=== PATIENT | male | born 1965 | race Caucasian/White ===

== ENCOUNTER 2019-03-08 14:01 | Inpatient (IN) | payer OTHER ==
[2019-03-08 15:42] VITALS: BMI 23.6
--- NOTE | 2019-03-08 17:57 | HP ---
COWS - Scale Resting Pulse: 0= [place] 80 or Below Sweatin= Chills/Flushing Restless Observation: 0= Sits Still Pupil Size: 0= Normal to Room Light Bone or Joint Aches: 1= Mild Discomfort Runny Nose/ Eye Tearin= Runny Nose/Eyes GI Upset > 30mins: 2= Nausea/Diarrhea Tremor Observation: 2= Slight Tremor Visible Yawning Observation: 1= 1-2x During Session Anxiety or Irritability: 1=Feels Anxious/Irritable Goose Flesh Skin: 3=Piloerection COWS Score: 13 CIWA Score Nausea/Vomitin Muscle Tremors: 2 Anxiety: 2 Agitation: 1-Slight > Activity Paroxysmal Sweats: 2 Orientation: 0-Oriented Tacttile Disturbances: 0-None Auditory Disturbances: 0-None Visual Disturbances: 0-None Headache: 3-Moderate CIWA-Ar Total Score: 12 - Admission Criteria [facility] Guidelines: Admission for Medically Managed Detox: Requires at least one of the followin. CIWA greater than 12 2. Seizures within the past 24 hours 3. Delirium tremens within the past 24 hours 4. Hallucinations within the past 24 hours 5. Acute intervention needed for co occurring medical disorder 6. Acute intervention needed for co occurring psychiatric disorder 7. Severe withdrawal that cannot be handled at a lower level of care (continued vomiting, continued diarrhea, abnormal vital signs) requiring intravenous medication and/or fluids 8. Admission ROS [facility] Chief Complaint: want to detox from ETOH and heroin Allergies/Adverse Reactions: Allergies Allergy/AdvReac Type Severity Reaction Status Date / Time No Known Allergies Allergy Verified 03/20/18 18:43 History of Present Illness: Mr. Luis is a 53yo male with hx of heroin use disorder, ETOH use disorder, tobacco use disorder, HIV, hepatitis C (treated 4-5 years ago), bipolar disorder , and schizophrenia who presents for heroin and ETOH detox. He reports multiple detox attempts, the last being about 1 year ago. He began using soon after the last session of detox. He uses 4-5 bags heroin/day and has been using consistently for the last 7 years, initially starting around age 29. Denies overdosing and does not have Narcan kit. He also reports drinking 100oz beer/ day and occasional liquor use. He began drinking at 10. Denies blackouts or seizures. He has been in methadone program before and is interested in beginning one again. Pt currently smokes 1/2 ppd tobacco x 20-30 years. He endorses cold sweats, sneezing, teary eyes, abdominal cramps, diarrhea, anxiety , trembling, nausea, and headaches. He denies vomiting and hallucinations. He reports taking his HIV medications today. Pt has not taking Seroquel in at least one week. PCP Dr. Lee Exam Limitations: No Limitations - Ebola screening Have you traveled outside of the country in the last 21 days: No Have you had contact with anyone from an Ebola affected area: No Do you have a fever: No - Review of Systems Constitutional: Chills, Diaphoresis EENT: reports: Tearing, Nose Congestion Respiratory: reports: No Symptoms reported Cardiac: reports: No Symptoms Reported GI: reports: Diarrhea, Nausea : reports: No Symptoms Reported Musculoskeletal: reports: Joint Pain Integumentary: reports: No Symptoms Reported Neuro: reports: Headache Endocrine: reports: No Symptoms Reported Hematology: reports: No Symptoms Reported Psychiatric: reports: Judgement Intact, Mood/Affect Appropiate, Orientated x3 Patient History - Patient Medical History Hx Anemia: No Hx Asthma: No Hx Chronic Obstructive Pulmonary Disease (COPD): No Hx Cancer: No Hx Cardiac Disorders: No Hx Congestive Heart Failure: No Hx Hypertension: No Hx Hypercholesterolemia: No Hx Pacemaker: No HX Cerebrovascular Accident: No Hx Seizures: No Hx Dementia: No Hx Diabetes: No Hx Gastrointestinal Disorders: No Hx Liver Disease: No Hx Genitourinary Disorders: No Hx Sexually Transmitted Disorders: Yes ([place] HX) Hx Renal Disease (ESRD): No Hx Thyroid Disease: No Hx Human Immunodeficiency Virus (HIV): Yes (SINCE 2004; ON ANTIRETROVIRAL DRUGS. ) Hx Hepatitis C: Yes (TREATED FOR 6 MONTHS) Hx Depression: Yes (NOT CURRENTLY ON MED) Hx Suicide Attempt: No (DENIES ) Hx Bipolar Disorder: No Hx Schizophrenia: No - Patient Surgical History Past Surgical History: Yes Hx Orthopedic Surgery: Yes (L leg fx sx in 1988 DUE TO FALL) Anesthesia Reaction: No - PPD History Date: 03/22/18 Results: 0 MM - Smoking Cessation Smoking history: Current every day smoker Have you smoked in the past 12 months: Yes Aproximately how many cigarettes per day: 10 Cigars Per Day: 0 Hx Chewing Tobacco Use: No Initiated information on smoking cessation: Yes 'Breaking Loose' booklet given: 03/08/19 - Substances abused Heroin Substance route: Inhalation Frequency: Daily Amount used: 4 bags Age of first use: 29 Date of last use: 03/07/19 Alcohol Substance route: Oral Frequency: Daily Amount used: 100 ounzes Age of first use: 10 Date of last use: 03/07/19 Family Disease History - Family Disease History Family Disease History: Heart Disease: Mother (ALCOHOL), Other: Father (ALCOHOL) , Mother Admission Physical Exam [facility] - Vital Signs Vital Signs: Vital Signs - 24 hr 03/08/19 15:31 Temperature 97 F L Pulse Rate 67 Respiratory 18 Rate Blood Pressure 121/80 - Physical General Appearance: Yes: No Apparent Distress, Nourished HEENTM: Yes: Normocephalic, Pharynx Normal Respiratory: Yes: Lungs Clear, Normal Breath Sounds Neck: Yes: Within Normal Limits Cardiology: Yes: Regular Rhythm, Regular Rate Abdominal: Yes: Normal Bowel Sounds, Soft, Tenderness Back: Yes: Within Normal Limits Musculoskeletal: Yes: Within Normal Limits Extremities: Yes: Within Normal Limits 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
--- NOTE | 2019-03-08 18:11 | PN ---
Teaching Attending Note Name of Resident: Una Henley ATTENDING PHYSICIAN STATEMENT I saw and evaluated the patient. I reviewed the resident's note and discussed the case with the resident. I agree with the resident's findings and plan as documented. SUBJECTIVE: 53 yo with HIV treated HCV, bipolar, schizophrenia- not taking meds. heroin- 4-5 bags/day alcohol- 100oz/day cigarettes- 1/2 PPD OBJECTIVE: Vital Signs - 24 hr 03/08/19 15:31 Temperature 97 F L Pulse Rate 67 Respiratory 18 Rate Blood Pressure 121/80 alert and oriented abd soft and tender utox- mop. MTD. BRANDEE-0 ASSESSMENT AND PLAN: AUD/OUD: librium and methadone detox protocols.
[2019-03-08] MEDS ORDERED: ACETAMINOPHEN 325 MG TABLET (FP) PO PRN ×2 (18:20)
[2019-03-08] MEDS ORDERED: cloNIDine HCL 0.1 MG TABLET PO PRN (18:20)
[2019-03-08] MEDS ORDERED: MAGNESIUM HYDROX 2400MG/30ML ORAL SUSPENSION 30 ML CUP PO PRN (18:20)
[2019-03-08] MEDS ORDERED: chlordiazePOXIDE HCL 25 MG CAPSULE PO PRN (18:20)
[2019-03-08] MEDS ORDERED: hydrOXYzine PAMOATE 25 MG CAPSULE (FP) PO PRN (18:20)
[2019-03-08] MEDS ORDERED: METHOCARBAMOL 500 MG TABLET PO PRN (18:20)
[2019-03-08] MEDS ORDERED: BISMUTH SUBSALICYLATE 524 MG/30 ML UD PO PRN (18:20)
[2019-03-08] MEDS ORDERED: MAGNESIUM CITRATE 300 ML BOTTLE PO PRN (18:20)
[2019-03-08] MEDS ORDERED: MAG HYDROX/AL HYDROX/SIMETH 30 ML UNIT-DOSE CUP PO PRN (18:20)
[2019-03-08] MEDS ORDERED: METHADONE HCL 10 MG TABLET (FOR DETOX USE ONLY) PO ONE (18:20)
[2019-03-08] MEDS ORDERED: IBUPROFEN 400 MG TABLET (FP) PO PRN (18:20)
[2019-03-08] MEDS ORDERED: MENTHOL/PHENOL 1 EACH UD MM PRN (18:20)
[2019-03-08] MEDS: NICOTINE 21 MG/24 HOURS TOPICAL PATCH TD SCH (19:47)
[2019-03-08] MEDS: chlordiazePOXIDE HCL 25 MG CAPSULE PO SCH (22:16)
[2019-03-08] MEDS: MELATONIN 5 MG TABLETS PO PRN (22:16)
[2019-03-08] MEDS: THIAMINE HCL 100 MG TABLET (FP) PO SCH (22:16)
[2019-03-09] MEDS: chlordiazePOXIDE HCL 25 MG CAPSULE PO SCH ×4 (05:08→22:13)
[2019-03-09] MEDS ORDERED: METHADONE HCL 10 MG TABLET (FOR DETOX USE ONLY) ONE (08:55)
[2019-03-09] MEDS ORDERED: METHADONE HCL 5 MG TABLET (FOR DETOX USE ONLY) ONE (08:55)
[2019-03-09] MEDS ORDERED: METHADONE (DETOX) 20 MG, METHADONE (DETOX) 5 MG PO ONE (10:00)
[2019-03-09] MEDS: PRENATAL VITAMINS W/ FOLIC ACID TABLET (FP) PO SCH (10:24)
[2019-03-09] MEDS: NICOTINE 21 MG/24 HOURS TOPICAL PATCH TD SCH (10:25)
[2019-03-09 10:26] LABS: HEMATOCRIT 39.3 % (35.4-49); HEMOGLOBIN 13.1 GM/dL (11.7-16.9); MCH 29.5 pg (25.7-33.7); MCHC 33.3 g/dl (32.0-35.9); MEAN CELL VOLUME 88.7 fl (80-96); MEAN PLT VOLUME 7.5 fl (7.5-11.1); PLATELET COUNT 190 K/MM3 (134-434); RBC 4.44 M/mm3 (4.00-5.60); RDW 14.1 % (11.9-15.9); WHITE BLOOD COUNT 7.9 K/mm3 (4.0-10.0)
[2019-03-09 10:35] LABS: ALBUMIN 3.6 g/dl (3.4-5.0); BILIRUBIN,TOTAL 0.2 mg/dL (0.2-1); BLOOD UREA NITROGEN 15.3 mg/dL (7-18); CALCIUM 8.4 mg/dL (8.5-10.1); CREATININE 0.7 mg/dL (0.55-1.3); POTASSIUM 3.6 mmol/L (3.5-5.1); TOT PROT 6.5 g/dl (6.4-8.2)
--- NOTE | 2019-03-09 11:46 | PN ---
S CIWA - CIWA Score Nausea/Vomitin-Mild Nausea/No Vomiting Muscle Tremors: 3 Anxiety: 2 Agitation: 2 Paroxysmal Sweats: 1-Minimal Palms Moist Orientation: 0-Oriented Tacttile Disturbances: 1-Very Mild Itch/Numbness Auditory Disturbances: 0-None Visual Disturbances: 0-None Headache: 1-Very Mild CIWA-Ar Total Score: 11 [facility] COWS - Scale Resting Pulse: 0= [place] 80 or Below Sweatin= Chills/Flushing Restless Observation: 0= Sits Still Pupil Size: 0= Normal to Room Light Bone or Joint Aches: 1= Mild Discomfort Runny Nose/ Eye Tearin= Nasal Congestion GI Upset > 30mins: 2= Nausea/Diarrhea Tremor Observation of Outstretched Hands: 2= Slight Tremor Visible Yawning Observation: 2= >3x During Session Anxiety or Irritability: 2=Irritable/Anxious Goose Flesh Skin: 0=Smooth Skin COWS Score: 11 [facility] Progress Note (SOAP) Subjective: 53 years old male admitted on 03/08/19 for acute alcohol and opiate withdrawal sx management doing well with librium and methadone detox regimen ambulating on hallway social with peers encourage the patient considering medication assisted treatment program Objective: 03/09/19 11:47 Vital Signs Temperature 96.9 F L 03/09/19 09:27 Pulse Rate 58 L 03/09/19 09:27 Respiratory Rate 16 03/09/19 09:27 Blood Pressure 90/61 03/09/19 09:27 O2 Sat by Pulse Oximetry (%) Laboratory Last Values WBC 7.9 K/mm3 (4.0-10.0) 03/09/19 07:30 RBC 4.44 M/mm3 (4.00-5.60) 03/09/19 07:30 Hgb 13.1 GM/dL (11.7-16.9) 03/09/19 07:30 Hct 39.3 % (35.4-49) 03/09/19 07:30 MCV 88.7 fl (80-96) 03/09/19 07:30 MCH 29.5 pg (25.7-33.7) 03/09/19 07:30 MCHC 33.3 g/dl (32.0-35.9) 03/09/19 07:30 RDW 14.1 % (11.9-15.9) 03/09/19 07:30 Plt Count 190 K/MM3 (134-434) 03/09/19 07:30 MPV 7.5 fl (7.5-11.1) 03/09/19 07:30 Sodium 141 mmol/L (136-145) 03/09/19 07:30 Potassium 3.6 mmol/L (3.5-5.1) 03/09/19 07:30 Chloride 107 mmol/L (98-107) 03/09/19 07:30 Carbon Dioxide 30 mmol/L (21-32) 03/09/19 07:30 Anion Gap 4 MMOL/L (8-16) L 03/09/19 07:30 BUN 15.3 mg/dL (7-18) 03/09/19 07:30 Creatinine 0.7 mg/dL (0.55-1.3) 03/09/19 07:30 Est GFR (CKD-EPI)AfAm 125.75 03/09/19 07:30 Est GFR (CKD-EPI)NonAf 108.50 03/09/19 07:30 Random Glucose 109 mg/dL (74-106) H 03/09/19 07:30 Calcium 8.4 mg/dL (8.5-10.1) L 03/09/19 07:30 Total Bilirubin 0.2 mg/dL (0.2-1) 03/09/19 07:30 AST 11 U/L (15-37) L 03/09/19 07:30 ALT 26 U/L (13-61) 03/09/19 07:30 Alkaline Phosphatase 89 U/L (45-117) 03/09/19 07:30 Total Protein 6.5 g/dl (6.4-8.2) 03/09/19 07:30 Albumin 3.6 g/dl (3.4-5.0) 03/09/19 07:30 lab noted Assessment: 03/09/19 11:47 alcohol and opiate withdrawal sx Plan: continue alcohol and opiate detox
[2019-03-09] MEDS: THIAMINE HCL 100 MG TABLET (FP) PO SCH (22:12)
[2019-03-09] MEDS: MELATONIN 5 MG TABLETS PO PRN (22:13)
[2019-03-10] MEDS: chlordiazePOXIDE HCL 25 MG CAPSULE PO SCH ×4 (05:15→22:15)
[2019-03-10] MEDS ORDERED: METHADONE HCL 10 MG TABLET (FOR DETOX USE ONLY) PO ONE (10:00)
[2019-03-10] MEDS: PRENATAL VITAMINS W/ FOLIC ACID TABLET (FP) PO SCH (10:04)
[2019-03-10] MEDS: NICOTINE 21 MG/24 HOURS TOPICAL PATCH TD SCH (10:05)
--- NOTE | 2019-03-10 10:29 | PN ---
S CIWA - CIWA Score Nausea/Vomitin-Mild Nausea/No Vomiting Muscle Tremors: 2 Anxiety: 2 Agitation: 2 Paroxysmal Sweats: 1-Minimal Palms Moist Orientation: 0-Oriented Tacttile Disturbances: 0-None Auditory Disturbances: 0-None Visual Disturbances: 0-None Headache: 0-None Present CIWA-Ar Total Score: 8 BHS COWS - Scale Resting Pulse: 0= [place] 80 or Below Sweatin= Chills/Flushing Restless Observation: 0= Sits Still Pupil Size: 0= Normal to Room Light Bone or Joint Aches: 1= Mild Discomfort Runny Nose/ Eye Tearin= Nasal Congestion GI Upset > 30mins: 1= Stomach Cramp Tremor Observation of Outstretched Hands: 1= Tremor [place], Not Seen Yawning Observation: 2= >3x During Session Anxiety or Irritability: 1=Feels Anxious/Irritable Goose Flesh Skin: 0=Smooth Skin COWS Score: 8 [facility] Progress Note (SOAP) Subjective: 53 years old male doing well with librium and methadone detox regimen social with peers in day room discuss aftercare with staff prefers return to [facility] Objective: 03/10/19 10:33 Vital Signs Temperature 96.6 F L 03/10/19 09:34 Pulse Rate 70 03/10/19 09:34 Respiratory Rate 18 03/10/19 09:34 Blood Pressure 99/73 03/10/19 09:34 O2 Sat by Pulse Oximetry (%) Laboratory Last Values WBC 7.9 K/mm3 (4.0-10.0) 03/09/19 07:30 RBC 4.44 M/mm3 (4.00-5.60) 03/09/19 07:30 Hgb 13.1 GM/dL (11.7-16.9) 03/09/19 07:30 Hct 39.3 % (35.4-49) 03/09/19 07:30 MCV 88.7 fl (80-96) 03/09/19 07:30 MCH 29.5 pg (25.7-33.7) 03/09/19 07:30 MCHC 33.3 g/dl (32.0-35.9) 03/09/19 07:30 RDW 14.1 % (11.9-15.9) 03/09/19 07:30 Plt Count 190 K/MM3 (134-434) 03/09/19 07:30 MPV 7.5 fl (7.5-11.1) 03/09/19 07:30 Sodium 141 mmol/L (136-145) 03/09/19 07:30 Potassium 3.6 mmol/L (3.5-5.1) 03/09/19 07:30 Chloride 107 mmol/L (98-107) 03/09/19 07:30 Carbon Dioxide 30 mmol/L (21-32) 03/09/19 07:30 Anion Gap 4 MMOL/L (8-16) L 03/09/19 07:30 BUN 15.3 mg/dL (7-18) 03/09/19 07:30 Creatinine 0.7 mg/dL (0.55-1.3) 03/09/19 07:30 Est GFR (CKD-EPI)AfAm 125.75 03/09/19 07:30 Est GFR (CKD-EPI)NonAf 108.50 03/09/19 07:30 Random Glucose 109 mg/dL (74-106) H 03/09/19 07:30 Calcium 8.4 mg/dL (8.5-10.1) L 03/09/19 07:30 Total Bilirubin 0.2 mg/dL (0.2-1) 03/09/19 07:30 AST 11 U/L (15-37) L 03/09/19 07:30 ALT 26 U/L (13-61) 03/09/19 07:30 Alkaline Phosphatase 89 U/L (45-117) 03/09/19 07:30 Total Protein 6.5 g/dl (6.4-8.2) 03/09/19 07:30 Albumin 3.6 g/dl (3.4-5.0) 03/09/19 07:30 RPR Titer Nonreactive (NONREACTIVE) 03/09/19 07:30 lab noted 03/10/19 10:33 Assessment: 03/10/19 10:34 alcohol and opiate withdrawal sx Plan: continue alcohol and opiate detox
[2019-03-10] MEDS: THIAMINE HCL 100 MG TABLET (FP) PO SCH (22:15)
[2019-03-10] MEDS: MELATONIN 5 MG TABLETS PO PRN (22:16)
[2019-03-11] MEDS ORDERED: chlordiazePOXIDE HCL 10 MG CAPSULE PO PRN
[2019-03-11] MEDS: chlordiazePOXIDE HCL 10 MG CAPSULE PO SCH ×4 (05:49→22:11)
[2019-03-11] MEDS ORDERED: METHADONE HCL 10 MG TABLET (FOR DETOX USE ONLY) ONE (09:23)
[2019-03-11] MEDS ORDERED: METHADONE HCL 5 MG TABLET (FOR DETOX USE ONLY) ONE (09:23)
[2019-03-11] MEDS ORDERED: METHADONE (DETOX) 10 MG, METHADONE (DETOX) 5 MG PO ONE (10:00)
[2019-03-11] MEDS: NICOTINE 21 MG/24 HOURS TOPICAL PATCH TD SCH (10:32)
[2019-03-11] MEDS: PRENATAL VITAMINS W/ FOLIC ACID TABLET (FP) PO SCH (10:32)
[2019-03-11] MEDS ORDERED: LIDOCAINE 5% TOPICAL PATCH TP SCH (15:00)
--- NOTE | 2019-03-11 17:20 | PN ---
[facility] CIWA - CIWA Score Nausea/Vomitin-No Nausea/No Vomiting Muscle Tremors: None Anxiety: 0-No Anxiety, at Ease Agitation: 2 Paroxysmal Sweats: No Perspiration Orientation: 0-Oriented Tacttile Disturbances: 0-None Auditory Disturbances: 0-None Visual Disturbances: 0-None Headache: 0-None Present CIWA-Ar Total Score: 2 S COWS - Scale Resting Pulse: 0= [place] 80 or Below Sweatin= No chills or Flushing Restless Observation: 1= Difficult to Sit Still Pupil Size: 0= Normal to Room Light Bone or Joint Aches: 0= None Runny Nose/ Eye Tearin= None GI Upset > 30mins: 0= None Tremor Observation of Outstretched Hands: 0= None Yawning Observation: 1= 1-2x During Session Anxiety or Irritability: 0= None Goose Flesh Skin: 0=Smooth Skin COWS Score: 2 [facility] Progress Note (SOAP) Subjective: Body Aches. Objective: PATIENT A & O X 3. IN NO ACUTE DISTRESS. 03/11/19 17:18 Vital Signs Temperature 97 F L 03/11/19 13:05 Pulse Rate 67 03/11/19 13:05 Respiratory Rate 18 03/11/19 13:05 Blood Pressure 109/67 03/11/19 13:05 O2 Sat by Pulse Oximetry (%) Laboratory Tests 03/09/19 03/09/19 03/09/19 07:30 07:30 07:30 WBC 7.9 RBC 4.44 Hgb 13.1 Hct 39.3 MCV 88.7 MCH 29.5 MCHC 33.3 RDW 14.1 Plt Count 190 MPV 7.5 Sodium 141 Potassium 3.6 Chloride 107 Carbon Dioxide 30 Anion Gap 4 L BUN 15.3 Creatinine 0.7 Est GFR (CKD-EPI)AfAm 125.75 Est GFR (CKD-EPI)NonAf 108.50 Random Glucose 109 H Calcium 8.4 L Total Bilirubin 0.2 AST 11 L ALT 26 Alkaline Phosphatase 89 Total Protein 6.5 Albumin 3.6 RPR Titer Nonreactive LABS NOTED. Assessment: 03/11/19 17:18 WITHDRAWAL SYMPTOMS. Plan: CONTINUE DETOX. LIDODERM PATCHES FOR PAIN IN BILATERAL SHOULDERS (DUE TO CHRONIC INJURY). REPORTS THAT HE IS TOLERATING CURRENT WITHDRAWAL / DETOX SYMPTOMS WELL. AT PATIENT'S REQUEST, CURRENT DETOX MEDICATION REGIMEN (LIBRIUM, METHADONE) MODIFIED SO THAT PATIENT MAY BE DISCHARGED TOMORROW, 03/12/2019, SO THAT HE MAY PROCEED ON TO AFTERCARE PLAN.
[2019-03-11] MEDS ORDERED: LIDOCAINE PATCH REMOVAL MC SCH (22:00)
[2019-03-11] MEDS: THIAMINE HCL 100 MG TABLET (FP) PO SCH (22:11)
[2019-03-11] MEDS: MELATONIN 5 MG TABLETS PO PRN (22:12)
[2019-03-12] MEDS ORDERED: chlordiazePOXIDE HCL 10 MG CAPSULE PO SCH (05:00)
[2019-03-12] MEDS ORDERED: chlordiazePOXIDE HCL 10 MG CAPSULE PO ONE (05:00)
[2019-03-12] MEDS ORDERED: METHADONE HCL 5 MG TABLET (FOR DETOX USE ONLY) PO ONE (06:00)
[2019-03-12 09:30] VITALS: BP 118/75; PULSE 68; TEMP 97.2
[2019-03-12] MEDS ORDERED: METHADONE HCL 10 MG TABLET (FOR DETOX USE ONLY) PO ONE (10:00)
--- NOTE | 2019-03-12 15:53 | DS ---
[facility] Detox Discharge Summary Admission Date: 03/08/19 Discharge Date: 03/12/19 - History Present History: Alcohol Dependence, Opioid Dependence Additional Comments: PATIENT GOING TO [facility] ([place], [place]) FOR AFTERCARE. PATIENT WAS DISCHARGED FROM DETOX UNIT IN STABLE MEDICAL CONDITION. Pertinent Past History: Nicotine Dependence, Hep C (treated), H.I.V., Schizophrenia, Bipolar Disorder, Depression. - Physical Exam Results Vital Signs: Vital Signs Temperature 97.2 F L 03/12/19 09:00 Pulse Rate 68 03/12/19 09:00 Respiratory Rate 18 03/12/19 09:00 Blood Pressure 118/75 03/12/19 09:00 O2 Sat by Pulse Oximetry (%) Pertinent Admission Physical Exam Findings: WITHDRAWAL SYMPTOMS. Laboratory Tests 03/09/19 03/09/19 03/09/19 07:30 07:30 07:30 WBC 7.9 RBC 4.44 Hgb 13.1 Hct 39.3 MCV 88.7 MCH 29.5 MCHC 33.3 RDW 14.1 Plt Count 190 MPV 7.5 Sodium 141 Potassium 3.6 Chloride 107 Carbon Dioxide 30 Anion Gap 4 L BUN 15.3 Creatinine 0.7 Est GFR (CKD-EPI)AfAm 125.75 Est GFR (CKD-EPI)NonAf 108.50 Random Glucose 109 H Calcium 8.4 L Total Bilirubin 0.2 AST 11 L ALT 26 Alkaline Phosphatase 89 Total Protein 6.5 Albumin 3.6 RPR Titer Nonreactive TB (QFT) Incubation TB Test (QFT) Nil TB Test (QFT) Mitogen TB Test (QFT) Antigen TB Test (QFT) TB Positive Criteria 03/09/19 07:30 WBC RBC Hgb Hct MCV MCH MCHC RDW Plt Count MPV Sodium Potassium Chloride Carbon Dioxide Anion Gap BUN Creatinine Est GFR (CKD-EPI)AfAm Est GFR (CKD-EPI)NonAf Random Glucose Calcium Total Bilirubin AST ALT Alkaline Phosphatase Total Protein Albumin RPR Titer TB (QFT) Incubation TB Test (QFT) Nil 0.09 TB Test (QFT) Mitogen >10.00 TB Test (QFT) Antigen 0.08 TB Test (QFT) Negative TB Positive Criteria LABS NOTE.D - Treatment Hospital Course: Detox Protocol Followed, Detoxed Safely, Responded well, Discharged Condition Good Patient has Accepted a Rehab Referral to: PATIENT GOING TO [facility] ( [place], [place]) FOR AFTERCARE. - Medication Discharge Medications: Ambulatory Orders Emtricitabine/Tenofov Alafenam [Descovy 200-25 mg Tablet (Nf)] 1 each PO DAILY 03/20/18 Darunavir/Cobicistat [Prezcobix 800 mg-150 mg Tablet] 1 each PO DAILY 03/08/19 - Diagnosis (1) Alcohol dependence with uncomplicated withdrawal Status: Acute (2) Opioid dependence with withdrawal Status: Acute (3) Nicotine dependence Status: Chronic Qualifiers: Nicotine product type: cigarettes Substance use status: uncomplicated Qualified Code(s): F17.210 - Nicotine dependence, cigarettes, uncomplicated - AMA Did Patient Leave Against Medical Advice: No
[2019-03-13] MEDS ORDERED: chlordiazePOXIDE HCL 10 MG CAPSULE PO ONE (05:00)
[2019-03-13] MEDS ORDERED: METHADONE HCL 5 MG TABLET (FOR DETOX USE ONLY) PO ONE (06:00)
== END 2019-03-12 09:21 | disposition home or self-care (01) | DRG 773 ==
LOC: YASAS 14:01 → Y3N 19:02
PROVIDERS: ADMIT Surgery; ATTEND Surgery
PROC: HZ2ZZZZ Detoxification Services for Substance Abuse Treatment (ICD-10-PCS; principal; 2019-03-08)
DX: F11.23 Opioid dependence with withdrawal (principal); F10.230 Alcohol dependence with withdrawal, uncomplicated; F17.210 Nicotine dependence, cigarettes, uncomplicated; Z21 Asymptomatic human immunodeficiency virus [HIV] infection status; B18.2 Chronic viral hepatitis C; Z87.438 Personal history of other diseases of male genital organs
CPT/HCPCS: 36415; 80053; 85027; 86480; 86593